=== PATIENT | female | born 1970 | race Caucasian/White ===

== ENCOUNTER 2017-11-24 16:52 | Observation (INO) | payer MEDICAID, OTHER ==
[2017-11-24 18:09] LABS: ADD MAN DIFF? NO
[2017-11-24 18:11] LABS: BASOPHILS % 0.3 % (0.0-2.0); EOSINOPHILS % 0.1 % (0.0-7.0); HEMATOCRIT 37.1 % (37.0-47.0); LYMPHOCYTES # 0.9 10^3/ul (0.8-2.9); LYMPHOCYTES % 8.1 % (15.0-51.0); MEAN CORPUSCULAR HEMOGLOBIN 26.7 pg (29.0-33.0); MEAN CORPUSCULAR HGB CONC 32.3 g/dl (32.0-37.0); MEAN CORPUSCULAR VOLUME 82.6 fl (82.0-101.0); MEAN PLATELET VOLUME 10.3 fl (7.4-10.4); MONOCYTE # 1.1 10^3/ul (0.3-0.9); MONOCYTES % 9.6 % (0.0-11.0); NEUTROPHILS % 81.4 % (39.0-77.0); PLATELET COUNT 522 10^3/UL (140-415); RED BLOOD COUNT 4.49 10^6/ul (4.20-5.40); RED CELL DISTRIBUTION WIDTH 13.2 % (11.5-14.5)
[2017-11-24 18:30] LABS: ALANINE AMINOTRANSFERASE 20 IU/L (13-69); ALBUMIN 3.5 g/dl (3.3-4.9); ALBUMIN/GLOBULIN RATIO 0.92; ALKALINE PHOSPHATASE 66 IU/L (42-121); ANION GAP 16 (8-16); ASPARTATE AMINO TRANSFERASE 16 IU/L (15-46); BILIRUBIN,INDIRECT 0.2 mg/dl (0-1.1); BILIRUBIN,TOTAL 0.2 mg/dl (0.2-1.3); BLOOD UREA NITROGEN 26 mg/dl (7-20); CALCIUM 9.4 mg/dl (8.4-10.2); CARBON DIOXIDE 28 mmol/L (21-31); CHLORIDE 96 mmol/L (97-110); CREATININE 1.15 mg/dl (0.44-1.00); GLUCOSE 119 mg/dl (70-220); LIPASE 44 U/L (23-300); POTASSIUM 4.4 mmol/L (3.5-5.1); SODIUM 136 mmol/L (135-144); TOTAL PROTEIN 7.3 g/dl (6.1-8.1)
[2017-11-24] MEDS: HYDROmorphONE 1 MG/ML SYG IV (18:32)
[2017-11-24] MEDS: ONDANSETRON 4 MG INJ IV (18:32)
[2017-11-24] MEDS: SOD CHLORIDE 0.9% 250 ML IV (18:57)
[2017-11-24] MEDS ORDERED: NACL 0.9% 3 ML SYG IV (21:00)
[2017-11-24] MEDS ORDERED: ACETAMINOPHEN 325 MG TAB PO (21:00)
[2017-11-24] MEDS: HYDROmorphONE 0.5 MG/0.5 ML SYG IV (21:02)
[2017-11-25] MEDS: DOCUSATE SODIUM 100 MG CAP PO ×3 (00:07→21:00)
[2017-11-25] MEDS: ACETAMINOPHEN 325 MG TAB PO (00:08)
[2017-11-25] MEDS: FUROSEMIDE 40 MG INJ IV (00:09)
[2017-11-25] MEDS: BISACODYL (EC) 5 MG TAB PO ×2 (03:05→08:00)
[2017-11-25] MEDS: HYDROmorphONE 0.5 MG/0.5 ML SYG IV ×5 (03:10→22:51)
[2017-11-25] MEDS: ONDANSETRON 4 MG INJ IV ×4 (03:10→22:55)
[2017-11-25 05:25] LABS: ADD MAN DIFF? NO
[2017-11-25 05:35] LABS: WHITE BLOOD COUNT 8.5 10^3/ul (4.8-10.8)
[2017-11-25 05:35] LABS: BASOPHILS % 0.4 % (0.0-2.0); EOSINOPHILS # 0.1 10^3/ul (0.0-0.5); EOSINOPHILS % 0.6 % (0.0-7.0); HEMATOCRIT 34.9 % (37.0-47.0); HEMOGLOBIN 11.1 g/dl (12.0-16.0); LYMPHOCYTES # 0.9 10^3/ul (0.8-2.9); LYMPHOCYTES % 10.5 % (15.0-51.0); MEAN CORPUSCULAR HEMOGLOBIN 26.2 pg (29.0-33.0); MEAN CORPUSCULAR HGB CONC 31.8 g/dl (32.0-37.0); MEAN CORPUSCULAR VOLUME 82.5 fl (82.0-101.0); MEAN PLATELET VOLUME 10.5 fl (7.4-10.4); MONOCYTE # 1.1 10^3/ul (0.3-0.9); MONOCYTES % 12.8 % (0.0-11.0); NEUTROPHIL # 6.4 10^3/ul (1.6-7.5); NEUTROPHILS % 75.2 % (39.0-77.0); PLATELET COUNT 472 10^3/UL (140-415); RED BLOOD COUNT 4.23 10^6/ul (4.20-5.40); RED CELL DISTRIBUTION WIDTH 13.4 % (11.5-14.5)
[2017-11-25 05:53] LABS: ALANINE AMINOTRANSFERASE 11 IU/L (13-69); ALBUMIN 3.3 g/dl (3.3-4.9); ALKALINE PHOSPHATASE 54 IU/L (42-121); ANION GAP 18 (8-16); ASPARTATE AMINO TRANSFERASE 14 IU/L (15-46); BILIRUBIN,INDIRECT 0.2 mg/dl (0-1.1); BILIRUBIN,TOTAL 0.2 mg/dl (0.2-1.3); BLOOD UREA NITROGEN 27 mg/dl (7-20); CALCIUM 9.1 mg/dl (8.4-10.2); CARBON DIOXIDE 27 mmol/L (21-31); CHLORIDE 98 mmol/L (97-110); CREATININE 1.38 mg/dl (0.44-1.00); GLUCOSE 102 mg/dl (70-220); POTASSIUM 4.6 mmol/L (3.5-5.1); SODIUM 138 mmol/L (135-144); TOTAL PROTEIN 6.6 g/dl (6.1-8.1)
[2017-11-25] MEDS: LIDOCAINE 1% (MPF) 5 ML VIAL (14:21)
[2017-11-25 15:57] LABS: FLD MN% 90.3 %; FLD PMN% 9.7 %; FLD RBC 2000 /uL; FLD WBC 318 /cmm
[2017-11-25 16:19] LABS: FLD CLARITY HAZY; FLD COLOR YELLOW
[2017-11-25 16:19] LABS: FLD TYPE ASCITES
[2017-11-25 16:33] LABS: FLUID TOTAL PROTEIN 4.1 g/dl
[2017-11-26] MEDS: HYDROmorphONE 0.5 MG/0.5 ML SYG IV (08:34)
[2017-11-26] MEDS: ONDANSETRON 4 MG INJ IV (08:34)
[2017-11-26] MEDS: DOCUSATE SODIUM 100 MG CAP PO (08:37)
[2017-11-26] MEDS: BISACODYL (EC) 5 MG TAB PO (08:37)
== END 2017-11-26 11:53 | disposition home or self-care (01) ==
LOC: E/R 16:52 → MS3 20:35
DX: R18.8 Other ascites (principal)
CPT/HCPCS: 36415; 76705; 80053; 82042; 83690; 84157; 84702; 84703; 85025; 87070; 87102; 87116; 88104; 88305; 88313; 88341; 88342; 89051; 96374; 96375; 99285-25